=== PATIENT | male | born 1935 | race Two or more races ===

== ENCOUNTER 2019-02-17 08:22 | Outpatient (CLI) | payer MEDICARE, BC ==
[2019-02-17] MEDS ORDERED: REGADENOSON 0.4 MG/5 ML DISP.SYRIN IVP ONE (09:30)
== END 2019-02-17 23:59 | disposition home or self-care (01) ==
LOC: RAD 08:22
PROVIDERS: ATTEND Internal Medicine Cardiovascular Disease
DX: I25.118 Atherosclerotic heart disease of native coronary artery with other forms of angina pectoris (principal); I10 Essential (primary) hypertension; E11.9 Type 2 diabetes mellitus without complications
CPT/HCPCS: 78452; A9502; J2785

== ENCOUNTER 2020-06-13 09:21 | Inpatient (IN) | payer MEDICARE, BC ==
[~2020-06-13] VITALS: Ht 172.7 cm; Wt 85.3 kg
--- NOTE | 2020-06-13 09:40 | NUR ---
pt came to ER sent by PMD. with c/o on and off pressure on chest for 2 weeks and now c/o constant pressure pain since this morning with SOB. no diaphoresis. awaiting for MD parks
[2020-06-13] MEDS ORDERED: ASPIRIN 325 MG TABLET ONE (09:45)
--- NOTE | 2020-06-13 09:46 | NUR ---
iv line established. blood drawn and sent to lab
[2020-06-13 09:55] LABS: BASOPHILS # (AUTO) 0.1 /CMM (0.0-0.2); BASOPHILS % (AUTO) 1.5 % (0.0-2.0); EOSINOPHILS % (AUTO) 2.2 % (0.0-6.0); HEMATOCRIT 35 % (39-51); HEMOGLOBIN 11.2 g/dL (13.5-17.5); LYMPHOCYTES # (AUTO) 1.1 /CMM (0.8-4.8); LYMPHOCYTES % (AUTO) 22.3 % (20.0-44.0); MEAN CORPUSCULAR HGB CONC 32 g/dl (31.0-36.0); MEAN CORPUSCULAR VOLUME 66 fL (80-96); MONOCYTES # (AUTO) 0.3 /CMM (0.1-1.30); MONOCYTES % (AUTO) 6.3 % (2.0-12.0); NEUTROPHILS # (AUTO) 3.3 /CMM (1.8-8.9); NEUTROPHILS % (AUTO) 67.7 % (43.0-81.0); PLATELET COUNT (AUTO) 143 /CMM (150-450); RED BLOOD CELL COUNT(AUTO) 5.35 MIL/uL (4.5-6.0); WHITE BLOOD COUNT (AUTO) 4.9 K/uL (4.3-11.0)
[2020-06-13] MEDS ORDERED: ASPIRIN 325 MG TABLET PO ONE (10:00)
--- NOTE | 2020-06-13 10:13 | NUR ---
COVID SWAB DONE SENT TO LAB
[2020-06-13 10:21] LABS: B-TYPE NATRIURETIC PEPTIDE 196 PG/ML (0-125); CALCIUM, SERUM 9.2 mg/dL (8.5-10.1); CARBON DIOXIDE 26 mmol/L (21-32); CHLORIDE 101 mmol/L (98-107); CREATININE 1.5 mg/dL (0.6-1.3); GLUCOSE 125 mg/dL (74-106); POTASSIUM 4.1 mmol/L (3.5-5.1); SODIUM SERUM 137 mmol/L (136-145); UREA NITROGEN, BLOOD 30 mg/dL (7-18)
[2020-06-13] MEDS ORDERED: LEVO75TA7 PO (10:38)
[2020-06-13] MEDS ORDERED: ICOS1CAP PO (10:38)
[2020-06-13] MEDS ORDERED: LEVO500T90 PO (10:38)
[2020-06-13] MEDS ORDERED: LINA5TAB PO (10:38)
[2020-06-13] MEDS ORDERED: METO25TA20 PO (10:38)
[2020-06-13] MEDS ORDERED: METF-440 PO (10:38)
[2020-06-13] MEDS ORDERED: LOSA25TA27 PO (10:38)
[2020-06-13] MEDS ORDERED: FENO134C PO (10:38)
[2020-06-13] MEDS ORDERED: ALFU10TA10 PO (10:38)
[2020-06-13] MEDS ORDERED: EMPA10TA PO (10:38)
[2020-06-13] MEDS ORDERED: ATOR40TA PO (10:38)
[2020-06-13] MEDS ORDERED: FINA5TAB11 PO (10:38)
--- NOTE | 2020-06-13 11:09 | NUR ---
LAB CALLED PT COVID-19 RESULT NEGATIVE (-)
--- NOTE | 2020-06-13 11:46 | NUR ---
ROOM 103
--- NOTE | 2020-06-13 12:05 | NUR ---
TYRONE BUCK (SON) WILL PICK THE PATIENT UP TOMORROW 1ST. #[phone]. 2ND. #[phone]. 3RD. #[phone]
[2020-06-13 12:30] VITALS: BP 128/71
[2020-06-13] MEDS ORDERED: ACETAMINOPHEN 325 MG TABLET PO PRN (12:30)
[2020-06-13] MEDS ORDERED: MAGNESIUM HYDROXIDE 30 ML UDC PO PRN (12:30)
[2020-06-13] MEDS ORDERED: METOPROLOL TARTRATE 25 MG TABLET PO PRN (12:30)
[2020-06-13] MEDS ORDERED: ONDANSETRON HCL/PF 4 MG/2 ML VIAL IVP PRN (12:30)
[2020-06-13] MEDS ORDERED: MAG HYDROX/AL HYDROX/SIMETH 30 ML UDC PO PRN (12:30)
[2020-06-13] MEDS ORDERED: Z GUARD REMEDY 2 OZ OINT TP PRN (12:30)
--- NOTE | 2020-06-13 12:35 | NUR ---
report given to demarcus reynoso at [facility]
[2020-06-13] MEDS: IV NS 0.9% 1,000 ML IV SCH (12:53)
[2020-06-13] MEDS: ENOXAPARIN SODIUM 30 MG/0.3 ML DISP.SYRIN SQ SCH (12:56)
--- NOTE | 2020-06-13 13:00 | NUR ---
ADMIT TO TELEMETRY PATIENT ARRIVED TO UNIT AT 12:30PM VIA GURNEY. REPORT RECEIVED FROM JESSICA FROM ER. PATIENT IS ALERT/ORIENTED X4. PATIENT REPORTED HAVING CHEST PRESSURE FEELING OFF AND ON FOR A FEW WEEKS HOWEVER IT NOW FEELS CONSISTENT. INFORMED THAT HIS ASSISTANT MEDIA BUYER INSTRUCTED HIM TO COME TO HOSPITAL. EKG SHOWS NORMAL SINUS RHYTHM. LUNG SOUNDS WERE CLEAR ALL AROUND. BOWEL SOUNDS ACTIVE X4 IN ALL QUADRANTS. IV ON RIGHT AC 18G INTACT AND PATENT. NO REDNESS OR SWELLING AT THIS TIME. PATIENT'S OXYGEN 98% ON ROOM AIR.
--- NOTE | 2020-06-13 14:52 | NUR ---
ON DR ADAME NOTE, HOLD [place] FOR NOW. CHECKED EMAR AND STILL SCHEDULED FOR 9AM TOMORROW. CLARIFIED WITH DR ADAME. HE WANTS TO DC [place] FOR NOW.
[2020-06-13 16:00] VITALS: BP 108/68
[2020-06-13] MEDS: ATORVASTATIN 40 MG TABLET PO SCH (17:21)
[2020-06-13] MEDS: VASCEPA 1 GM PO SCH (17:33)
--- NOTE | 2020-06-13 18:57 | NUR ---
RN CLOSING NOTE Patient in bed awake no signs of distress. On room air tolerating well. Patient is AO x4 verbally responsive. Has RAC #20 running NS @75ml/hr. All due meds given. Vital signs within normal limits. No co pain or discomfort. Per patient he feels better now. Safety measures maintained. Call light within reach. Will endorse to shift stacker nurse for [place].
--- NOTE | 2020-06-13 19:00 | NUR ---
RN OPENING NOTE RECEIVED PATIENT IN BED RESTING ALERT ORIENTED X4 VERBALLY RESPONSIVE ABLE TO MAKE NEEDS KNOWN,ON ROOM AIR NO SOB NOT ACUTE DISTRESS NOTED,AMBULATORY WITH ASSIST CONTINENT TO BOWEL/BLADDER,ON TELE MONITORING,IV SITE IS ON RIGHT AC INTACT PATENT,IV HYDRATION NS 0.9% 75 CC/HR RUNNING,SAFETY MEASURE IMPLEMENT,BED IN LOW POSITION AND LOCKED,CALL LIGHT WITHIN REACH,CONTINUE TO MONITOR.
[2020-06-13 20:00] VITALS: BP 121/56
[2020-06-13] MEDS: ALFUZOSIN 10 MG PO SCH (21:09)
[2020-06-14] VITALS: BP 131/60
[2020-06-14] MEDS: HYDROCODONE/APAP 5/325MG TABLET PO PRN ×2 (00:20→06:20)
[2020-06-14] MEDS: IV NS 0.9% 1,000 ML IV SCH ×2 (01:20→15:29)
[2020-06-14 04:00] VITALS: BP 117/59
[2020-06-14 06:04] LABS: EOSINOPHILS % (AUTO) 4.3 % (0.0-6.0); HEMATOCRIT 31 % (39-51); HEMOGLOBIN 9.9 g/dL (13.5-17.5); LYMPHOCYTES # (AUTO) 1.3 /CMM (0.8-4.8); LYMPHOCYTES % (AUTO) 33.2 % (20.0-44.0); MEAN CORPUSCULAR HGB CONC 32 g/dl (31.0-36.0); MEAN CORPUSCULAR VOLUME 66 fL (80-96); MONOCYTES # (AUTO) 0.4 /CMM (0.1-1.30); MONOCYTES % (AUTO) 11.5 % (2.0-12.0); NEUTROPHILS # (AUTO) 1.9 /CMM (1.8-8.9); PLATELET COUNT (AUTO) 124 /CMM (150-450); RED BLOOD CELL COUNT(AUTO) 4.69 MIL/uL (4.5-6.0); WHITE BLOOD COUNT (AUTO) 3.8 K/uL (4.3-11.0)
[2020-06-14 06:14] LABS: CALCIUM, SERUM 8.8 mg/dL (8.5-10.1); CREATININE 1.1 mg/dL (0.6-1.3); PHOSPHORUS 4.2 mg/dL (2.5-4.9); POTASSIUM 4.4 mmol/L (3.5-5.1)
--- NOTE | 2020-06-14 06:20 | NUR ---
RN NOTE NORCO 5-325 MG GIVEN FOR SEVERE PAIN 04/06 CONTINUE TO MONITOR.
--- NOTE | 2020-06-14 06:48 | NUR ---
RN CLOSING NOTE PATIENT REMAINS ALERT ORIENTED X4 VERBALLY RESPONSIVE NO SOB NOT ACUTE DISTRESS NOTED,ON ROOM AIR O2:97% IV SITE IS ON RIGHT AC INTACT PATENT, IV HYDRATION NS 0.9% RUNNING 75CC/HR ALL DUE MEDS GIVEN MD ORDERED,KEPT CLEAN AND DRY ALL THE TIME,KEPT COMFORTABLE,SAFETY MEASURE IMPLEMENTED,KEPT CALL LIGHT WITHIN REACH,ALL NEEDS MET,ENDORSE NEXT COMING SHIFT FOR CONTINUATION OF CARE.
--- NOTE | 2020-06-14 07:30 | NUR ---
RN OPENING NOTES RECEIVED PATIENT IN BED RESTING ALERT ORIENTED X4. VERBALLY RESPONSIVE ABLE TO MAKE NEEDS KNOWN. NOT IN ANY ACUTE DISTRESS. ON TELE MONITOR WI WITH ASSIST CONTINENT TO BOWEL/BLADDER,ON TELE MONITORING, RIGHT BUNDLE BUNCH BLOCK BENIGN. IV SITE IS ON RIGHT AC INTACT AND FLUSHED. IV HYDRATION NS 0.9% 75 CC/HR RUNNING,SAFETY MEASURE IMPLEMENTED. SAFETY PRECAUTION OBSERVED. WILL CONTINUE TO MONITOR.
[2020-06-14 08:20] LABS: EOSINOPHILS % (MANUAL) 1 % (0-4); LYMPHOCYTES % (MANUAL) 31 % (16-48); MONOCYTES % (MANUAL) 10 % (0-11.0); NEUTROPHILS % (MANUAL) 58 (42-76)
[2020-06-14] MEDS: LEVOTHYROXINE SODIUM 75 MCG TABLET PO SCH (08:39)
[2020-06-14] MEDS ORDERED: LOSARTAN POTASSIUM 25 MG TABLET PO SCH (09:00)
[2020-06-14] MEDS ORDERED: FENOFIBRATE NANOCRYS (145 MG) 145 MG TABLET PO SCH (09:00)
[2020-06-14] MEDS: ASPIRIN 81 MG TAB.CHEW PO SCH (09:35)
[2020-06-14] MEDS: FINASTERIDE (5 MG) 5 MG TABLET PO SCH (09:36)
[2020-06-14] MEDS: METOPROLOL TARTRATE 25 MG TABLET PO SCH ×2 (09:36→21:00)
[2020-06-14] MEDS: VASCEPA 1 GM PO SCH ×2 (09:43→17:29)
[2020-06-14] MEDS: ENOXAPARIN SODIUM 30 MG/0.3 ML DISP.SYRIN SQ SCH (10:02)
[2020-06-14] MEDS ORDERED: METOPROLOL TARTRATE INJ 5 MG/5 ML AMPUL IVP PRN (10:30)
[2020-06-14] MEDS ORDERED: NITROGLYCERIN 0.4 MG/TAB BOTTLE SL ONE (10:30)
[2020-06-14] MEDS ORDERED: IOHEXOL-350 100 ML VIAL IV ONE (10:49)
[2020-06-14] MEDS ORDERED: METOPROLOL TARTRATE INJ 5 MG/5 ML AMPUL ONE ×2 (10:49→11:30)
[2020-06-14] MEDS ORDERED: CT SWABBABLE VALVE TRANS SET 1 EA INFUS.SET MC ONE (10:50)
[2020-06-14] MEDS ORDERED: IV NS 0.9% 250 ML IV ONE (10:50)
[2020-06-14 10:58] VITALS: BP 131/60
[2020-06-14 12:00] VITALS: BP 132/65
[2020-06-14 16:00] VITALS: BP 132/65
--- NOTE | 2020-06-14 16:04 | NUR ---
Molecular Pathologist consult requeted by Dr. Arnav Pleitez regarding advanced directive. Patient is an 85-year-old male. Patient is alert and oriented x4. Patient was receptive to speaking with this SW. Patient informed this SW that he is thankful that SW came to speak to him as patient report he was to be discharged this afternoon. SW provide resources regarding facts and myths of an advanced directive. SW educated the patient regarding next steps. Patient in understanding. SW to remain available for all needs regarding this patient.
[2020-06-14] MEDS: ATORVASTATIN 40 MG TABLET PO SCH (17:28)
--- NOTE | 2020-06-14 18:38 | NUR ---
WOOD LAST MAKER CLOSING NOTES PATIENT REMAINS ALERT ORIENTED X4 VERBALLY RESPONSIVE. NOT IN ANY ACUTE DISTRESS NOTED,ON ROOM AIR O2SAT AT 97% IV SITE IS ON RIGHT AC INTACT PATENT, IV HYDRATION NS 0.9% RUNNING 75CC/HR ALL DUE MEDS GIVEN MD ORDERED. KEPT CLEAN AND DRY ALL THE TIME. KEPT COMFORTABLE. SAFETY MEASURE IMPLEMENTED, KEPT CALL LIGHT WITHIN REACH. FOR MYOCARDIAL STRESS TEST IN AM. TO BE NPO EXCEPT MEDS AFTER MIDNIGHT OF 06/14/2020. ALL NEEDS MET. WILL ENDORSE TO NEXT SHIFT FOR INDERJIT
--- NOTE | 2020-06-14 19:20 | NUR ---
RN NOTE RECEIVED PT A/O X4 [place] AND CITIZEN OF [place] SPEAKING. PT CURRENTLY ON ROOM AIR O2SAT AT 98%. IV SITE TO RIGHT AC PATENT, INTACT AND FLUSHING WELL, IVF NS 0.9% RUNNING 75CC/HR. ON TELE MONITOR NSR WITH RT BBB. BED LOCKED AND IN THE LOWEST POSITION, SIDE RAILS UP X 2, CALL LIGHT WITHIN REACH WILL CONT. TO MONITOR PT.
[2020-06-14 20:00] VITALS: BP 125/59
--- NOTE | 2020-06-14 21:06 | NUR ---
RN NOTE LOPRESSOR NOT GIVEN ON TELE MONITOR NSR WITH RT BUNDLE BLOCK WITH EPISODES OF HR IN 40'S. WILL CONT. TO MONITOR PT
[2020-06-14] MEDS: ALFUZOSIN 10 MG PO SCH (21:12)
[2020-06-15] VITALS: BP 115/63
--- NOTE | 2020-06-15 | NUR ---
RN NOTE PT CURRENTLY NPO AT THIS TIME.
[2020-06-15 04:00] VITALS: BP 133/63
[2020-06-15] MEDS: IV NS 0.9% 1,000 ML IV SCH (04:29)
--- NOTE | 2020-06-15 07:15 | NUR ---
RN OPENING NOTE TELE RECEIVED PT LYING IN BED AWAKE, A/O X4 [place] AND [place] SPEAKING. PT CURRENTLY ON ROOM AIR O2SAT AT 99%. IV SITE TO RIGHT AC PATENT, INTACT AND FLUSHING WELL, IVF NS 0.9% RUNNING 7ML/HR. ON TELE MONITOR NSR WITH RT BBB. SAFETY PRECAUTIONS IN PLACE- BED LOCKED AND IN LOWEST POSITION, SR UP x2, CALL LIGHT WITHIN REACH. WILL CONTINUE TO MONITOR PT.
--- NOTE | 2020-06-15 07:19 | NUR ---
RN NOTE PT REMAIN STABLE NO CHANGES DURING SHIFT. ENDORSED TO AM RN FOR INDERJIT
--- NOTE | 2020-06-15 07:25 | NUR ---
RN NOTE PT PICKED UP FOR STRESS TEST. IN STABLE CONDITION
[2020-06-15 08:00] VITALS: BP 119/53
[2020-06-15] MEDS: LEVOTHYROXINE SODIUM 75 MCG TABLET PO SCH (08:05)
--- NOTE | 2020-06-15 08:35 | NUR ---
PT RETURNED FROM STRESS TEST. IN STABLE CONDITION. IN BED EATING BREAKFAST
[2020-06-15] MEDS ORDERED: REGADENOSON 0.4 MG/5 ML DISP.SYRIN IVP ONE (09:00)
[2020-06-15] MEDS: FINASTERIDE (5 MG) 5 MG TABLET PO SCH (09:18)
[2020-06-15] MEDS: ASPIRIN 81 MG TAB.CHEW PO SCH (09:18)
[2020-06-15] MEDS: VASCEPA 1 GM PO SCH ×2 (09:19→17:00)
[2020-06-15] MEDS: METOPROLOL TARTRATE 25 MG TABLET PO SCH (09:22)
[2020-06-15] MEDS: ENOXAPARIN SODIUM 30 MG/0.3 ML DISP.SYRIN SQ SCH (09:27)
[2020-06-15] MEDS: HYDROCODONE/APAP 5/325MG TABLET PO PRN (09:42)
[2020-06-15 12:00] VITALS: BP 122/62
--- NOTE | 2020-06-15 14:24 | NUR ---
RN NOTES PATIENT READY FOR DISCHARGE, NO FAMILY AVAILABLE TO PICK HIM UP. NOTIFIED CASE MANAGEMENT AND NURSING COLLEGE OR UNIVERSITY FACULTY MEMBER. STILL WORKING ON TRANSPORTATION. Addendum: 06/15/20 at 1810 by JAEL BLANCO RN ADDENDUM: PATIENT VERY UNSTABLE WITH GAIT. FALL RISK
[2020-06-15 16:00] VITALS: BP 117/55
[2020-06-15] MEDS: ATORVASTATIN 40 MG TABLET PO SCH (17:26)
--- NOTE | 2020-06-15 18:10 | NUR ---
ASSEMBLER FISHING FLOATS NOTES PATIENT DISCHARGED TO HOME TODAY PER MD IN STABLE CONDITION. CLEARED BY DR. YOUNG CORE PASTER. PROVIDED DC INSTRUCTIONS, HEALTH TEACHINGS AND MED RECON LIST. PATIENT TO FOLLOW UP WITH PCP IN 1-2 WEEKS AND WILL MAKE OWN APPOINTMENT. IV ACCESS ON RIGHT AC REMOVED, CATHETER TIP COMPLETE, APPLIED PRESSURE, NO BLEEDING DRESSING IN PLACE. ALL BELONGINGS CHECKED AND RETURNED. ALL PAPER WORKS SIGNED. PICKED UP BY 2 AMBULANCE CREW AND WILL TRANSPORT PATIENT TO HOME BY AMBULANCE. PATIENT HIGH RISK FOR FALL AND WITH VERY UNSTEADY GAIT.
== END 2020-06-15 18:00 | disposition home or self-care (01) | DRG 302 ==
LOC: ER 09:21 → TELE1 11:48
PROVIDERS: ADMIT Internal Medicine; ATTEND Internal Medicine
DX: I25.10 Atherosclerotic heart disease of native coronary artery without angina pectoris (principal); N17.0 Acute kidney failure with tubular necrosis; E11.22 Type 2 diabetes mellitus with diabetic chronic kidney disease; E03.9 Hypothyroidism, unspecified; E86.0 Dehydration; I12.9 Hypertensive chronic kidney disease with stage 1 through stage 4 chronic kidney disease, or unspecified chronic kidney disease; Z79.84 Long term (current) use of oral hypoglycemic drugs; Z85.828 Personal history of other malignant neoplasm of skin; E78.5 Hyperlipidemia, unspecified; I45.10 Unspecified right bundle-branch block; Z88.0 Allergy status to penicillin; G47.33 Obstructive sleep apnea (adult) (pediatric); N18.2 Chronic kidney disease, stage 2 (mild); N40.0 Benign prostatic hyperplasia without lower urinary tract symptoms
CPT/HCPCS: 36415; 71045-TC; 75574; 80048-TC; 80061-TC; 83735-TC; 83880; 84100-TC; 84484-TC; 85025-TC; 87081-TC; 93307-TC; A9502; C9803; G0378; J1650; J2785; J3490; J7030; J7050; Q9967